=== PATIENT | female | born 1960 | race Caucasian/White ===

== ENCOUNTER 2021-08-29 14:48 | Emergency (ER) | payer MEDICAID ==
[~2021-08-29] VITALS: Ht 157.5 cm; Wt 106.6 kg
[2021-08-29 15:13] VITALS: BP_SYST 130
--- NOTE | 2021-08-29 15:24 | NUR ---
Patient to waiting room awaiting for bed to become available. Dr. Meyer made aware.
--- NOTE | 2021-08-29 15:51 | NUR ---
Dr. Meyer in triage room assessing pt.
--- NOTE | 2021-08-29 16:00 | NUR ---
neurophysiology tech at bedside drawing lab. Covid swab and flu swab completed.
[2021-08-29 16:32] LABS: ANION GAP 8 (5-15); CALCIUM 9.3 mg/dL (8.4-11.0); CHLORIDE 102 mmol/L (98-107); CREATININE 0.99 mg/dL (0.55-1.30); GLUCOSE 109 mg/dL (70-99); POTASSIUM 3.7 mmol/L (3.5-5.1); SODIUM SERUM 137 mmol/L (136-145); UREA NITROGEN, BLOOD 18 mg/dL (8-21)
[2021-08-29 16:34] LABS: BASOPHILS % (AUTO) 0.5 % (0.0-2.0); EOSINOPHILS # (AUTO) 0.1 K/uL (0.0-0.4); EOSINOPHILS % (AUTO) 1.5 % (0.0-4.0); HEMATOCRIT 37.4 % (36-48); HEMOGLOBIN 12.4 g/dL (12.0-16.0); LYMPHOCYTES # (AUTO) 1.5 K/uL (1.0-5.5); LYMPHOCYTES % (AUTO) 14.9 % (20.5-51.5); MEAN CORPUSCULAR HEMOGLOBIN 26 pg (27-31); MEAN CORPUSCULAR HGB CONC 33 % (32-36); MEAN CORPUSCULAR VOLUME 78 fL (79.0-98.0); MONOCYTES # (AUTO) 1.2 K/uL (0.0-1.0); MONOCYTES % (AUTO) 11.8 % (1.7-9.3); NEUTROPHILS # (AUTO) 7.1 K/uL (1.8-7.7); NEUTROPHILS % (AUTO) 71.3 % (40.0-70.0); PLATELET COUNT (AUTO) 232 K/uL (130-430); RED CELL DISTRIBUTION WIDTH 16.4 % (9.0-15.0); WHITE BLOOD COUNT (AUTO) 9.9 K/uL (4.8-10.8)
[2021-08-29 16:38] LABS: GFR AFRICAN AMERICAN 73 mL/min (>90)
[2021-08-29 16:44] LABS: ALANINE AMINOTRANSFERASE 35 U/L (12-78); ALBUMIN 3.3 g/dL (3.4-4.8); ASPARTATE AMINOTRANSFERASE 24 U/L (10-37); TOTAL BILIRUBIN 0.2 mg/dL (0.0-1.0)
[2021-08-29] MEDS ORDERED: PSEU30TA36 PO (17:55)
[2021-08-29] MEDS ORDERED: ALBMDI INH (17:55)
--- NOTE | 2021-08-29 18:30 | NUR ---
Per pt, came from home reporting flu like sx-headache, cough, muscle aches. Alert and oriented upon face to face assessment. Ambulating with cane maintaining steady gait. Awaiting discharge.
[2021-08-29 18:40] VITALS: BP_SYST 130
--- NOTE | 2021-08-29 18:40 | NUR ---
Patient given written and verbal discharge instructions and verbalizes understanding. ER MD discussed with patient the results and treatment provided. Patient in stable condition. ID arm band removed. Rx of Ventolin and Sudafed given. Patient educated on pain management and to follow up with PMD. Opportunity for questions provided and answered. Medication side effect fact sheet provided.
== END 2021-08-29 18:40 | disposition home or self-care (01) ==
LOC: SED 14:48
DX: J20.9 Acute bronchitis, unspecified (principal); Z88.5 Allergy status to narcotic agent; Z88.4 Allergy status to anesthetic agent; Z20.822 Contact with and (suspected) exposure to COVID-19
CPT/HCPCS: 36415; 71045; 80053; 83880; 84484; 85025; 99284

== ENCOUNTER 2023-04-04 17:46 | Emergency (ER) | payer MEDICAID ==
[~2023-04-04] VITALS: Ht 162.6 cm; Wt 90.7 kg
[~2023-04-04 17:46] MED LIST: ALBMDI INH; PSEU30TA36 PO
[2023-04-04 17:50] VITALS: BP_SYST 193; PULSE 70; RESP 18; TEMP 97.6; O2SAT 99
[2023-04-04] MEDS ORDERED: ACETAMINOPHEN 325 MG TABLET PO ONE (18:15)
[2023-04-04] MEDS ORDERED: DIPHTH,PERTUSS(ACELL),TET VAC 0.5 ML VIAL (Tdap) I.M. ONE (18:15)
[2023-04-04] MEDS ORDERED: CEPH250C PO (19:54)
[2023-04-04 21:59] VITALS: BP_SYST 169; PULSE 65; RESP 18; TEMP 97.9; O2SAT 96
== END 2023-04-04 21:59 | disposition home or self-care (01) ==
LOC: SED 17:46
DX: S01.111A Laceration without foreign body of right eyelid and periocular area, initial encounter (principal); S40.011A Contusion of right shoulder, initial encounter; R51.9 Headache, unspecified; I10 Essential (primary) hypertension; Z88.5 Allergy status to narcotic agent; Z88.8 Allergy status to other drugs, medicaments and biological substances; Z79.899 Other long term (current) drug therapy; W01.110A Fall on same level from slipping, tripping and stumbling with subsequent striking against sharp glass, initial encounter; Y93.89 Activity, other specified; Y92.511 Restaurant or cafe as the place of occurrence of the external cause; Y99.8 Other external cause status
CPT/HCPCS: 70450-TC; 73030; 76376; 90715; 99285